=== PATIENT | male | born 1995 | race Caucasian/White ===

== ENCOUNTER → 2016-09-06 | Outpatient (CLI) | payer BC ==
--- NOTE | 2016-09-06 11:10 | US ---
EXAMINATION TYPE: US abdomen complete DATE OF EXAM: 09/06/2016 COMPARISON: NONE CLINICAL HISTORY: Abn LFT's R94.5. Abnormal LFTs, history of mono EXAM MEASUREMENTS: Liver Length: 15.9 cm Gallbladder Wall: 0.3 cm CBD: 0.4 cm Spleen: 14.4 cm Right Kidney: 10.6 x 4.1 x 5.0 cm Left Kidney: 11.6 x 4.1 x 5.1 cm Pancreas: obscured by overlying bowel content Liver: visualized portions appear wnl Gallbladder: no evidence of stones Evidence for sonographic Martin's sign: no CBD: wnl Spleen: enlarged Right Kidney: no evidence of hydronephrosis or mass Left Kidney: no evidence of hydronephrosis or mass Upper IVC: wnl Abd Aorta: wnl Limited views of the pancreas are unremarkable. The liver is normal in size without biliary dilatatio n. The gallbladder is normal without evidence of cholelithiasis. The gallbladder wall measures 2.9 mm. T he distal common hepatic duct measures 4 mm. The spleen is prominent measuring 14.4 cm. Both kidneys are normal. Visualized portions of aorta and IVC are normal. IMPRESSION: MILD SPLENOMEGALY.
== END | disposition home or self-care (01) ==
LOC: RADUSWWP 09:01
PROVIDERS: ATTEND Family Medicine
DX: R16.1 Splenomegaly, not elsewhere classified (principal)
CPT/HCPCS: 76700